=== PATIENT | male | born 1990 | race Two or more races ===

== ENCOUNTER 2018-05-03 16:19 | Emergency (ER) | payer OTHER ==
[~2018-05-03] VITALS: Ht 154.9 cm; Wt 61.2 kg
[~2018-05-03 16:19] MED LIST: ALBIPROI INH; ALBU90OI; ALBU90OI INH; AMOX500 PO; Bactrim Ds Tab1 EACH PO; CEPH500 PO; CODACE30 PO; CRUTCH2 USE; CYCL10 PO; Crutch1 EACH MISC; DIPH50 PO; ERYT250 PO; HYDACE5 PO; HYDGUAL120 PO; IBUP600 PO; LAVAP4L PO; METPRE4DP PO; NAPR500 PO; Norco 5-325 Ta1 EACH PO; PRED10 PO; Pepcid20 MG PO
[2018-05-03] MEDS ORDERED: Amoxicillin500 MG PO (16:51)
[2018-05-03] MEDS ORDERED: IBUP800 PO (16:51)
== END 2018-05-03 17:01 | disposition home or self-care (01) ==
LOC: ER 16:19
DX: K08.89 Other specified disorders of teeth and supporting structures (principal); Z79.899 Other long term (current) drug therapy
CPT/HCPCS: 99282

== ENCOUNTER 2018-06-29 09:32 | Emergency (ER) | payer OTHER ==
[~2018-06-29] VITALS: Ht 154.9 cm; Wt 61.2 kg
[~2018-06-29 09:32] MED LIST changes: +Amoxicillin500 MG PO; +IBUP800 PO
[2018-06-29 10:44] LABS: Source, Urine Clean Catch
[2018-06-29 10:52] LABS: Appearance, Urine Clear (Clear); Bilirubin, Urine Neg (Neg); Blood, Urine Neg (Neg); Color, Urine Yellow (P-Yellow); Glucose Qualitative, Urine Neg (Neg); Ketones, Urine Neg (Neg); Leukocyte Esterase, Urine 1+ (Neg); Nitrite, Urine Neg (Neg); Protein, Urine Neg (Neg); Urobilinogen, Urine NORM (Normal)
[2018-06-29 11:11] LABS: Bacteria Not Seen /hpf; Red Blood Cells, Urine Not Seen /hpf (0-2); Squamous Epithelial Cells Not Seen /hpf (Few); White Blood Cells, Urine 0-2 /hpf (0-5)
[2018-06-29] MEDS ORDERED: KETO10 PO (11:44)
[2018-06-29] MEDS ORDERED: Robaxin500 MG PO (11:44)
== END 2018-06-29 11:49 | disposition home or self-care (01) ==
LOC: ER 09:32
PROVIDERS: Physician Assistant
DX: M54.5 Low back pain (principal); F41.0 Panic disorder [episodic paroxysmal anxiety]
CPT/HCPCS: 72100; 81001; 87086; 96372; 99283-25; A9270-GY; J1885

== ENCOUNTER → 2018-09-06 | Outpatient (CLI) | payer OTHER ==
[~2018-09-06] MED LIST changes: +KETO10 PO; +Robaxin500 MG PO
== END | disposition home or self-care (01) ==
LOC: LAB EV 08:52 → LAB SHORT 08:52
DX: H10.33 Unspecified acute conjunctivitis, bilateral (principal)
CPT/HCPCS: 87070; 87205

== ENCOUNTER → 2018-10-25 | Outpatient (CLI) | payer OTHER | END | disposition home or self-care (01) | LOC: LAB SHORT 17:57 → LAB EV 17:57 | DX: H10.33 Unspecified acute conjunctivitis, bilateral (principal) | CPT/HCPCS: 87070; 87205 ==

== ENCOUNTER 2019-02-20 13:55 | Emergency (ER) | payer OTHER ==
[~2019-02-20] VITALS: Ht 154.9 cm; Wt 63.5 kg
[2019-02-20] MEDS ORDERED: CYCL10 PO (14:05)
[2019-02-20] MEDS ORDERED: GUAIFEN-CODEINE10 ML PO (15:54)
[2019-02-20] MEDS ORDERED: Zithromax250 MG PO (15:54)
[2019-02-20] MEDS ORDERED: ALBU90OI INH (15:54)
== END 2019-02-20 16:00 | disposition home or self-care (01) ==
LOC: ER 13:55
DX: R05 Cough (principal); J45.909 Unspecified asthma, uncomplicated; Z87.891 Personal history of nicotine dependence
CPT/HCPCS: 36415; 71046; 85379; 99283-25

== ENCOUNTER 2019-05-04 11:57 | Emergency (ER) | payer OTHER ==
[~2019-05-04] VITALS: Ht 157.5 cm; Wt 63.5 kg
[~2019-05-04 11:57] MED LIST changes: +GUAIFEN-CODEINE10 ML PO; +Zithromax250 MG PO
== END 2019-05-04 13:16 | disposition home or self-care (01) ==
LOC: ER 11:57
DX: M25.561 Pain in right knee (principal)
CPT/HCPCS: 99283

== ENCOUNTER 2020-09-27 14:44 | Emergency (ER) | payer OTHER ==
[~2020-09-27] VITALS: Ht 157.5 cm; Wt 72.6 kg
== END 2020-09-27 15:30 | disposition home or self-care (01) ==
LOC: ER 14:44
DX: U07.1 COVID-19 (principal)
CPT/HCPCS: 99285